=== PATIENT | female | born 1980 | race Caucasian/White ===

== ENCOUNTER 2016-07-18 16:12 | Observation (INO) | payer OTHER ==
[2016-07-18] VITALS (175 sets, daily range): BP systolic 91; BP diastolic 52; PULSE 77; TEMP 98; O2SAT 89–100
[~2016-07-18] VITALS: Ht 165.1 cm; Wt 68.6 kg
[2016-07-18 16:23] LABS: BASO # 0.1 (0.0-0.2); BASO % 0.8 % (0.0-2.0); EOS # 0.2 (0.0-0.7); EOS % 2.3 % (0-4.0); GRAN # 4.2 (1.4-6.5); GRAN % 47.1 % (42.2-75.2); LYMPH # 3.8 (1.2-3.4); LYMPH % 41.9 % (20.0-51.0); MEAN CELL VOLUME 89 fl (80.0-100.0); MEAN CORPUSCULAR HGB CONC 34 g/dl (33.0-37.0); MEAN PLATELET VOLUME 10.6 fl (7.4-10.4); MONO # 0.7 (0.1-0.6); MONO % 7.7 % (1.7-9.3); PLATELET COUNT 228 K/mm3 (130-400); RED BLOOD COUNT 3.82 M/mm3 (4.10-5.30); REDCELL DISTRIBUTION WIDTH-CV 12.2 % (11.5-14.5)
[2016-07-18 16:26] LABS: VENOUS BLOOD GAS BE 0.6 (-4-4); VENOUS BLOOD GAS SAO2 75.3 % (60-80)
[2016-07-18 16:27] LABS: VENOUS BLOOD GAS SITE VENIPUNCTURE
[2016-07-18 16:34] LABS: ADJUSTED CALCIUM 8.7 mg/dL (8.4-10.2); ALANINE AMINOTRANSFERASE 21 U/L (9-52); ALBUMIN 3.6 gm/dL (3.5-5.0); ALKALINE PHOSPHATASE 37 U/L (50-136); ANION GAP 13 mmol/L (7-16); BILIRUBIN,TOTAL 0.5 mg/dL (0.0-1.0); BLOOD UREA NITROGEN 10 mg/dL (7-17); CALCIUM 8.4 mg/dL (8.4-10.2); CARBON DIOXIDE 22 mmol/L (22-30); CHLORIDE 101 mmol/L (98-107); CREATININE, serum 0.73 mg/dL (0.52-1.25); GLUCOSE 128 mg/dL (74-106); LIPASE 127 U/L (23-300); POTASSIUM 3.8 mmol/L (3.4-5.0); SODIUM 137 mmol/L (137-145); TOTAL PROTEIN 6.5 gm/dL (6.4-8.2)
[2016-07-18 16:40] LABS: ACETAMINOPHEN < 10 ug/mL (10-30); SALICYLATE < 1.0 mg/dL
[2016-07-18 16:43] LABS: HEMOGLOBIN 11.5 g/dl (12.5-16.0); MEAN CORPUSCULAR HEMOGLOBIN 30 pg (27.0-31.0)
[2016-07-18] MEDS ORDERED: SYNTHROID0.125 MG/T PO ×2 (16:48→20:45)
[2016-07-18 16:53] LABS: PH 6 (5-8); SQUAMOUS EPITHELIAL None Seen /hpf; URINE APPEARANCE Hazy; URINE BACTERIA Rare /hpf; URINE BILIRUBIN Negative (NEGATIVE); URINE BLOOD Negative (NEGATIVE); URINE COLOR Yellow; URINE GLUCOSE Negative (NEGATIVE); URINE KETONE Negative (NEGATIVE); URINE RBC 0-2 /hpf; URINE UROBILINOGEN Negative (NEGATIVE); URINE WBC 0-2 /hpf
[2016-07-18 16:54] LABS: TROPONIN-I < 0.012 ng/mL (0.000-0.034)
[2016-07-18 17:02] LABS: AMPHETAMINE URINE NEGATIVE; BARBITURATES URINE NEGATIVE; BENZODIAZEPINES URINE POSITIVE; BUPRENORPHINE URINE NEGATIVE; METHADONE URINE NEGATIVE; OPIATES URINE NEGATIVE; OXYCODONE URINE NEGATIVE; PHENCYCLIDINE URINE NEGATIVE; PROPOXYPHENE URINE NEGATIVE; THC CANNABINOIDS URINE NEGATIVE
[2016-07-18] MEDS ORDERED: FLEXERIL 1010 MG/TAB PO (20:44)
[2016-07-18] MEDS ORDERED: SONATA 10MG10 MG PO (20:46)
[2016-07-18] MEDS ORDERED: NEURONTIN300 MG/CAP PO ×2 (20:48→20:49)
[2016-07-18] MEDS ORDERED: CYMBALTA 60MG60 MG PO (20:49)
[2016-07-18] MEDS ORDERED: SINGULAIR 110 MG/TAB PO (20:50)
[2016-07-18] MEDS ORDERED: PROAIR HFA0.09 MG/AC IH (20:51)
[2016-07-18] MEDS ORDERED: NEXIUM 40MG40 MG PO (20:52)
[2016-07-18] MEDS ORDERED: MELATONIN5 M1 PO (20:54)
[2016-07-19] VITALS (433 sets, daily range): BP systolic 93–110; BP diastolic 42–96; PULSE 66–85; TEMP 97.9–98.7; O2SAT 31–100
[2016-07-19] MEDS ORDERED: SYNTHROID 0.10.15 MG PO (01:04)
[2016-07-19 06:26] LABS: BASO % 0.2 % (0.0-2.0); GRAN # 10.2 (1.4-6.5); GRAN % 85.1 % (42.2-75.2); LYMPH # 1.3 (1.2-3.4); LYMPH % 10.7 % (20.0-51.0); MEAN CELL VOLUME 91 fl (80.0-100.0); MEAN CORPUSCULAR HGB CONC 33 g/dl (33.0-37.0); MEAN PLATELET VOLUME 11.6 fl (7.4-10.4); MONO # 0.4 (0.1-0.6); MONO % 3.5 % (1.7-9.3); PLATELET COUNT 184 K/mm3 (130-400); RED BLOOD COUNT 3.59 M/mm3 (4.10-5.30); REDCELL DISTRIBUTION WIDTH-CV 12.2 % (11.5-14.5); WHITE BLOOD COUNT 11.9 K/mm3 (4.8-10.8)
[2016-07-19 06:35] LABS: HEMATOCRIT 32.6 % (37.0-47.0); HEMOGLOBIN 10.8 g/dl (12.5-16.0); MEAN CORPUSCULAR HEMOGLOBIN 30 pg (27.0-31.0)
[2016-07-19 06:37] LABS: CALCIUM 7.5 mg/dL (8.4-10.2); CREATININE, serum 0.65 mg/dL (0.52-1.25); POTASSIUM 4.1 mmol/L (3.4-5.0)
== END 2016-07-19 11:10 | disposition home or self-care (01) ==
LOC: COL.ER 16:12 → ICU 17:57
PROVIDERS: Emergency Medicine; Internal Medicine
DX: R55 Syncope and collapse (principal); R11.2 Nausea with vomiting, unspecified; F41.9 Anxiety disorder, unspecified; F32.9 Major depressive disorder, single episode, unspecified; G47.00 Insomnia, unspecified; K21.9 Gastro-esophageal reflux disease without esophagitis; E03.9 Hypothyroidism, unspecified; Z79.899 Other long term (current) drug therapy; J45.909 Unspecified asthma, uncomplicated; R07.89 Other chest pain; M54.12 Radiculopathy, cervical region; R29.818 Other symptoms and signs involving the nervous system
CPT/HCPCS: 99239; G0378; J1650; J2405; J7030

== ENCOUNTER 2021-08-11 08:17 | Day surgery (SDC) | payer OTHER ==
[~2021-08-11] VITALS: Ht 165.1 cm; Wt 63.4 kg
[~2021-08-11 08:17] MED LIST: CYMBALTA 60MG60 MG PO; FLEXERIL 1010 MG/TAB PO; MELATONIN5 M1 PO; NEURONTIN300 MG/CAP PO; NEXIUM 40MG40 MG PO; PROAIR HFA0.09 MG/AC IH; SINGULAIR 110 MG/TAB PO; SONATA 10MG10 MG PO; SYNTHROID 0.10.15 MG PO; SYNTHROID0.125 MG/T PO
[2021-08-11 08:48] VITALS: BP 123/82; PULSE 109; TEMP 97.6
[2021-08-11] MEDS ORDERED: PROTONIX 40MG T40 MG PO (08:53)
[2021-08-11] MEDS ORDERED: AMBIEN 5MG TABLE5 MG PO (08:55)
[2021-08-11] MEDS ORDERED: SYNTHROID0.175 MG PO (08:55)
[2021-08-11 10:30] VITALS: BP 114/57; PULSE 113; TEMP 98.5
[2021-08-11 10:45] VITALS: BP 105/63; PULSE 105; TEMP 98
[2021-08-11 11:00] VITALS: BP 99/60; PULSE 102; TEMP 97.3
[2021-08-11 11:08] VITALS: BP 120/61; PULSE 116
--- NOTE | 2021-08-11 12:00 | NUR ---
1030 Pt returns from endo procedure via cart and RN assist to [facility] [place] [facility]. Pt ambulates from cart to recliner with RN assist. Monitors on and alarms set. Call light within reach. Report received from WILLIAM WINTER. Pt alert and oriented. Pt requests [employer]LL[employer]. Pt denies any pain, COMPLAINT OF MILD NAUSEA. 1045 Pt taking food and drink well. No complications noted. 1115 IV SITE TAKEN OUT. 1120 Discharge instructions given to pt. All questions answered to HER satisfaction. Handed to pt are a thank you card and discharge information. 1135 Pt transferred out of the hospital via wheelchair and SHYAM assist, to private vehicle driven by .
== END 2021-08-11 11:35 | disposition home or self-care (01) ==
LOC: SDCO 08:17
DX: K21.9 Gastro-esophageal reflux disease without esophagitis (principal); K44.9 Diaphragmatic hernia without obstruction or gangrene; K58.0 Irritable bowel syndrome with diarrhea; Z79.899 Other long term (current) drug therapy; Z90.49 Acquired absence of other specified parts of digestive tract; Z90.89 Acquired absence of other organs
CPT/HCPCS: J2405; J2704; J7120